=== PATIENT | female | born 1960 | race Caucasian/White ===

== ENCOUNTER 2016-08-10 08:28 | Outpatient (CLI) | payer OTHER ==
--- NOTE | 2016-08-10 09:45 | DIAGNOSTIC IMAGING REPORT ---
PROCEDURE: US ABDOMEN ULTRASOUND-COMPLETE INDICATION: RT UPPER QUADRANT PAIN TECHNIQUE: Sol scale and color Doppler sonographic images of the abdomen were obtained. COMPARISON: None. FINDINGS: Liver measures 18.6 cm with diffuse increased echogenicity and focal sparing around the gallbladder. Multiple mobile gallstones. No gallbladder wall thickening. Normal CBD measures 3.2 mm. Spleen and pancreas are normal. Aorta and IVC are patent. Normal hepatopetal flow. Normal kidneys. Right kidney measures 11.7 cm and left kidney 13.5 cm. IMPRESSION: 1. Cholelithiasis 2. Hepatic steatosis
== END 2016-08-10 23:00 ==
LOC: US SRH 08:28
DX: K80.20 Calculus of gallbladder without cholecystitis without obstruction (principal); K76.0 Fatty (change of) liver, not elsewhere classified

== ENCOUNTER 2017-01-16 10:56 | Outpatient (CLI) | payer OTHER ==
--- NOTE | 2017-01-16 11:51 | DIAGNOSTIC IMAGING REPORT ---
PROCEDURE: XR LUMBAR SPINE 2 OR 3 VIEWS INDICATION: LOW BACK PAIN TECHNIQUE: Three views. COMPARISON: None. FINDINGS: Spondylosis L4-5 with a posterior osteophyte that is protruding into the anterior spinal canal. IMPRESSION: 1. Spondylosis L4-5 with a posterior osteophyte.
== END 2017-01-16 23:00 ==
LOC: XR SRH 10:56
DX: M47.816 Spondylosis without myelopathy or radiculopathy, lumbar region (principal); M25.78 Osteophyte, vertebrae